=== PATIENT | male | born 1970 | race Caucasian/White ===

== ENCOUNTER 2019-12-11 09:09 | Emergency (ER) | payer SELFPAY ==
[2019-12-11] MEDS ORDERED: MAG HYDROX/AL HYDROX/SIMETH SUSP 30 ML UDCUP PO ONE (10:09)
--- NOTE | 2019-12-11 10:19 | ER Document Report ---
ED General - General Chief Complaint: Chest Pain Stated Complaint: CHEST PAIN Time Seen by Provider: 12/11/19 09:33 Primary Care Provider: ERIC MARES [Primary Care Provider] - Follow up as needed - [facility] Notes: Chief complaint: Chest pain History of present illness: 49-year-old male with no significant prior medical history, no regular medications and no known allergies presents for evaluation of chest pain. Patient and his are from [facility] and had spent the weekend with [place] the beach. Patient says that he drinks s ocially and may have had a little more to drink than usual over the weekend. He felt well last night. He was driving home this morning when he developed what he initially perceived to be a severe episode of heartburn. He says he is occasionally had reflux symptoms in the past for which he takes Tums. He took some Tums this morning and really did not get any relief of this. He says he is never had an episode of heartburn this bad. He describes a burning pain in the subxiphoid and central chest area. No radiation. Mild nausea without vomiting. No diaphoresis. He said he felt weak as though he was going to pass out at one point although he did not lose consciousness. No dyspnea. No hemoptysis. No fever or chills. Patient states his discomfort was at a 10/10 level initially. Currently it is about 2/10. He denies any known history of cholelithiasis. Patient is a smoker. Social alcohol consumption. Denies any drug use. No known history of diabetes mellitus, hypertension or hyperlipidemia. Family history is negative for thromboembolic disease and patient has no personal history of thromboembolic disease. Father has had 2 MIs. Patient works as a tier lift truck operator. He denies any recent injuries. He denies any lower extremity edema. His discomfort is nonpleuritic. HEART Score: HISTORY 0 ECG 0 AGE 1 RISK FACTORS 2 TROPONIN 0 TOTAL: 3 If HEART score is = 3 AND both tronponin measurments are normal, the 30 day risk of a major adverse cardiac event (all-cause mortality, myocardia infarction or need for coronary revscularization) is < 1% (Sensitivity 100%, NPV 100%). - Related Data Allergies/Adverse Reactions: No Known Allergies Allergy (Unverified 12/11/19 09:37) Past Medical History - General Information source: Patient, Relative - Social History Smoking Status: Current Every Day Smoker Frequency of alcohol use: Occasional Drug Abuse: None Occupation: transporter driver Lives with: Family Family History: CAD Patient has homicidal ideation: No - Past Medical History Cardiac Medical History: Reports: None Pulmonary Medical History: Reports: None EENT Medical History: Reports: None Neurological Medical History: Reports: None Endocrine Medical History: Reports: None Renal/ Medical History: Reports: None Malignancy Medical History: Reports None GI Medical History: Reports: Hx Gastroesophageal Reflux Disease Musculoskeletal Medical History: Reports None Skin Medical History: Reports None Psychiatric Medical History: Reports: None Surgical Hx: Negative Review of Systems - Review of Systems Notes: Constitutional: Negative for fever. HENT: Negative for sore throat. Eyes: Negative for visual changes. Cardiovascular: As per HPI. Respiratory: Negative for shortness of breath. Gastrointestinal: As per HPI. Genitourinary: Negative for dysuria. Musculoskeletal: Negative for back pain. Skin: Negative for rash. Neurological: Negative for headaches, weakness or numbness. 10 point ROS negative except as marked above and in HPI. Physical Exam - Vital signs Vitals: Temp Pulse Resp BP Pulse Ox 97.7 F 80 20 167/105 H 98 12/11/19 09:22 12/11/19 09:22 12/11/19 09:22 12/11/19 09:22 12/11/19 09:22 - Notes Notes: GENERAL: Mildly obese male of approximately stated age appearing mildly anxious. SKIN: Good turgor no rashes. HEAD: Normocephalic atraumatic. EYES: PERRLA. EOMI. Conjunctivae and sclerae clear. EARS: CANALS AND TMS CLEAR. NOSE: CLEAR. MOUTH: Moist mucosa. Good dentition. No stridor or edema. No drooling. NECK: Supple. No masses or thyromegaly. No adenopathy. Carotids 2+ without bruits. No JVD. BACK: Symmetrical without tenderness. CHEST: Respirations unlabored. Breath sounds clear and symmetrical. HEART: Regular rhythm. No murmur gallop or rub. ABDOMEN: Mild obesity. Soft nontender without masses, organomegaly or rebound. Bowel sounds normally active. No bruits. GENITALIA: Deferred. EXTREMITIES: No edema. No calf tenderness. Cap refill less than 1.5 seconds. Dorsalis pedis and posterior tibial pulses 3+ and symmetrical. NEUROLOGICAL: GCS 15. Alert and oriented x3. Fluent speech. Cranial nerves II through XII intact. Sensorimotor and cerebellar normal. Normal tone. PSYCHIATRIC: Mildly anxious affect. Course - Re-evaluation Re-evalutation: 12/11/19 14:46 Symptoms are promptly relieved by liquid antacid. Patient is a heart score of 3. His EKG x2 here is normal. He has 2 normal troponins 3 hours apart. He does have some significant risk factors including a family history, smoking and obesity. His blood pressure is marginally elevated here although he is not being treated for hypertension. D-dimer was negative. Patient remains asymptomatic at this time. Current blood pressure is 140/88. Second troponin was negative. I advised this man that he should stop smoking. Weight loss is advised. I am going to put him on some Protonix. He should seek medical attention immediately for red flag symptoms. He understands that he needs to see a dog races manager and have an outpatient treadmill test this week. He and his are traveling from out of town and they are on the way back home now. Findings, clinical impression and plan of treatment have been discussed with patient/family. Understanding of current findings and recommendations has been acknowledged by them and there is agreement regarding disposition and follow-up. - Vital Signs Vital signs: Temp Pulse Resp BP Pulse Ox 97.7 F 80 17 149/88 H 98 12/11/19 09:27 12/11/19 09:22 12/11/19 14:31 12/11/19 14:31 12/11/19 14:31 - Laboratory Result Diagrams: 12/11/19 10:25 12/11/19 10:25 Laboratory results interpreted by me: 12/11/19 12/11/19 10:25 10:25 RDW 14.2 H Urine Blood SMALL H - Diagnostic Test Radiology reviewed: Reports reviewed - Portable chest x-ray per radiologist: Normal study. - EKG Interpretation by Me Additional EKG results interpreted by me: 12/11/19 10:22 Twelve-lead EKG from 0914 hrs. reviewed contemporaneously by me. Indication for study: Chest pain Normal sinus rhythm. Rate 78. Normal intervals. Normal axis +[address]/T wave changes. Interpretation: Normal sinus rhythm. Discharge - Discharge Clinical Impression: Chest pain, Gastroesophageal reflux Condition: Stable Disposition: HOME, SELF-CARE Instructions: Chest Pain of Unclear Cause ([facility]), Reflux Disease (GERD) ([facility]) Additional Instructions: Take prescribed medication. Stop smoking. Reduction of your weight is advised. See your primary care physician within the next 24 to 48 hours and he will need referral to a dog races manager for a treadmill test this week. Return to emergency department for new or worsening symptoms: Pain that is worsening or unimproved Severe shortness of breath Uncontrolled vomiting High fever or shaking chills Overall worsening Prescriptions: Pantoprazole Sodium [Protonix [address] Tablet] 40 mg PO QAMPM 15 Days #30 tablet.dr Forms: Smoking Cessation Education, Elevated Blood Pressure, Return to Work Referrals: LOCALMD,NO [Primary Care Provider] - Follow up as needed
--- NOTE | 2019-12-11 10:35 | RADIOLOGY REPORT (SQ) ---
EXAM DESCRIPTION: CHEST SINGLE VIEW IMAGES COMPLETED DATE/TIME: 12/11/2019 10:21 am REASON FOR STUDY: cp COMPARISON: None. NUMBER OF VIEWS: One view. TECHNIQUE: Single frontal radiographic view of the chest acquired. LIMITATIONS: None. FINDINGS: LUNGS AND PLEURA: No opacities, masses or pneumothorax. No pleural effusion. MEDIASTINUM AND HILAR STRUCTURES: No masses. Contour normal. HEART AND VASCULAR STRUCTURES: Heart normal in size. Normal vasculature. BONES: No acute findings. HARDWARE: None in the chest. OTHER: No other significant finding. IMPRESSION: NO SIGNIFICANT RADIOGRAPHIC FINDING IN THE CHEST. TECHNICAL DOCUMENTATION: JOB ID: [id number] 2010 [employer]- All Rights Reserved Reading location - IP/workstation name: [email or web address]
[2019-12-11 10:42] LABS: ABSOLUTE BASOPHILS # (AUTO) 0.1 10^3/uL (0.0-0.2); ABSOLUTE EOSINOPHILS # (AUTO) 0.5 10^3/uL (0.0-0.6); ABSOLUTE LYMPHOCYTES (AUTO) 2.2 10^3/uL (0.5-4.7); ABSOLUTE MONOCYTES (AUTO) 0.8 10^3/uL (0.1-1.4); ABSOLUTE NEUT (AUTO) 4.9 10^3/uL (1.7-8.2); BASOPHILS % (AUTO) 0.7 % (0-2); EOSINOPHILS % (AUTO) 5.8 % (0-6); HEMATOCRIT 45.8 % (37.9-51.0); HEMOGLOBIN 15.9 g/dL (13.5-17.0); LYMPHOCYTES % (AUTO) 25.9 % (13-45); MEAN CORPUSCULAR HEMOGLOBIN 32.1 pg (27.0-33.4); MEAN CORPUSCULAR HGB CONC 34.8 g/dL (32.0-36.0); MEAN CORPUSCULAR VOLUME 92 fl (80-97); MONOCYTES % (AUTO) 9.2 % (3-13); PLATELET COUNT 186 10^3/uL (150-450); RED BLOOD COUNT 4.96 10^6/uL (4.35-5.55); RED CELL DISTRIBUTION WIDTH 14.2 % (11.5-14.0); SEGMENTED NEUTROPHILS % (AUTO) 58.4 % (42-78); TOTAL CELLS COUNTED % (AUTO) 100 %; WHITE BLOOD COUNT 8.3 10^3/uL (4.0-10.5)
[2019-12-11 10:45] LABS: INTERNATIONAL RATION (INR) 0.91; PROTHROMBIN TIME 12.5 SEC (11.4-15.4)
[2019-12-11 10:46] LABS: PARTIAL THROMBOPLASTIN TIME 33.3 SEC (23.5-35.8)
[2019-12-11 10:48] LABS: D-DIMER 0.29 ug/mL (0.00-0.50)
[2019-12-11 10:49] LABS: APPEARANCE,URINE CLEAR; BILIRUBIN,URINE NEGATIVE (NEGATIVE); COLOR,URINE STRAW; GLUCOSE, URINE NEGATIVE (NEGATIVE); KETONES,URINE NEGATIVE (NEGATIVE); PROTEIN,URINE NEGATIVE (NEGATIVE); URINE SPECIFIC GRAVITY 1.006; UROBILINOGEN,URINE NEGATIVE mg/dL (<2.0)
[2019-12-11 10:56] LABS: ALBUMIN 4.4 g/dL (3.5-5.0); ALKALINE PHOSPHATASE 87 U/L (38-126); ANION GAP 9 (5-19); ASPARTATE AMINO TRANSFERASE 42 U/L (17-59); BILIRUBIN,DIRECT 0.4 mg/dL (0.0-0.4); BILIRUBIN,TOTAL 0.8 mg/dL (0.2-1.3); BLOOD UREA NITROGEN 11 mg/dL (7-20); CALCIUM 9.1 mg/dL (8.4-10.2); CARBON DIOXIDE 26 mmol/L (22-30); CHLORIDE 104 mmol/L (98-107); GLUCOSE 105 mg/dL (75-110); POTASSIUM 4.2 mmol/L (3.6-5.0); TOTAL PROTEIN 7.1 g/dL (6.3-8.2)
[2019-12-11 10:57] LABS: ALCOHOL < 10 mg/dL (NONE DETECTED)
[2019-12-11 11:10] LABS: URINE AMPHETAMINES SCREEN NEGATIVE; URINE BARBITURATES SCREEN NEGATIVE; URINE BENZODIAZEPINES SCREEN NEGATIVE; URINE COCAINE SCREEN NEGATIVE; URINE METHADONE SCREEN NEGATIVE; URINE PHENCYCLIDINE SCREEN NEGATIVE
[2019-12-11 11:16] LABS: URINE MARIJUANA (THC) SCREEN NEGATIVE
[2019-12-11 15:16] VITALS: BP 166/104
--- NOTE | 2019-12-12 08:50 | EKG REPORT ---
SEVERITY:- NORMAL ECG - SINUS RHYTHM : Confirmed by: Jameel Oliveros MD 12-Dec-2019 08:49:04
== END 2019-12-11 15:40 | disposition home or self-care (01) ==
LOC: ER 09:09
DX: R07.9 Chest pain, unspecified (principal); K21.9 Gastro-esophageal reflux disease without esophagitis; F17.200 Nicotine dependence, unspecified, uncomplicated; R11.0 Nausea
CPT/HCPCS: 36415; 71045; 80053; 80307; 81001; 83690; 84484; 85025; 85379; 85610; 85730; 93005; 93010; 99285